=== PATIENT | male | born 2000 | race Caucasian/White ===

== ENCOUNTER 2025-04-24 15:26 | Emergency (ER) | payer BC, SELFPAY ==
--- NOTE | 2025-04-24 15:51 | ED_ITS ---
HPI - General Adult General Chief complaint: Skin/Abscess/Foreign Body Stated complaint: Rash all over Time Seen by Provider: 04/24/25 15:51 Source: patient Mode of arrival: ambulatory Limitations: no limitations History of Present Illness HPI narrative: 24-year-old male presented for complaint of a rash spreading over body surface. Onset last night. Rash is red and raised, mostly over joints. Patient complete d course of amoxicillin 2 days ago, taking for wisdom tooth extraction. Also reports wearing new pants that had not been washed. Endorses itching. Taking Benadryl. Denies lip, tongue, or throat swelling, shortness of breath or wheezing. Denies changes to soap, detergent, lotion, or any other exposures. No one else in the house or any contacts with similar symptoms. Related Data Allergies Allergy/AdvReac Type Severity Reaction Status Date / Time No Known Allergies Allergy Verified 04/24/25 15:51 Review of Systems Review of Systems: per HPI [facility] Family History Family History Mother Family history of thyroid disease Family history of lupus erythematosus Grandparent Diabetes mellitus Hypertension Family history of cardiovascular disease Family history of congestive heart failure Father Hypertension Social History Social History Smoking status: Never smoker Second hand tobacco smoke exposure: No Alcohol intake: never Comments At time of signature, I have reviewed and agree with nursing past medical, surgical, social and family history unless otherwise noted. Please see nursing chart for further information. There is no relevant family history pertinent to the presenting complaint Exam Narrative: GENERAL: Well-appearing HEAD: Normocephalic, atraumatic. EYES: conjunctivae clear, and EOMI. ENT: Mucous membranes moist. Oropharynx without edema, erythema or lesions. NECK: Supple. No lymphadenopathy CHEST: Clear to auscultation. HEART: Regular rate and rhythm. SKIN: Warm, dry. Urticaria noted to bilateral elbows, hands, knees, and along spine NEURO: Alert and oriented x3. Course Course Level of Care: Express Care Visit Vital Signs Vital signs: Vital Signs Temperature 98 F 04/24/25 15:57 Pulse Rate 107 H 04/24/25 15:57 Respiratory Rate 16 04/24/25 15:57 Blood Pressure 124/69 04/24/25 15:57 Pulse Oximetry 98 04/24/25 15:57 Temperature 98 F 04/24/25 15:57 Pulse Rate 107 H 04/24/25 15:57 Respiratory Rate 16 04/24/25 15:57 Blood Pressure 124/69 04/24/25 15:57 Pulse Oximetry 98 04/24/25 15:57 MDM MDM Narrative Medical decision making narrative: Discussed physical exam findings likely 2/2 amoxicillin. reviewed prescriptions. Advised supportive measures and signs/symptoms to go to the ER. Pt is appropriate for outpt treatment and f/u. Differential Diagnosis Differential Diagnosis: viral exanthema, contact dermatitis, allergic dermatitis, eczema, urticaria, insect bites, impetigo, tinea, folliculitis Discharge Plan Discharge Clinical Impression: Urticaria Patient Disposition: Home Condition: Stable Instructions: Antibiotic Form, Urticaria (ED) Additional Instructions: Take steroids and Pepcid as directed. Benadryl every 8 hours as needed Cool compresses to the sites of itching, avoid hot water. Avoid scratching to reduce the risk of infection Follow up with your primary care provider as needed in 1 week Go to the ER for worsening symptoms or concerns (lip, tongue, throat swelling/itching, trouble breathing etc) Patient Language: Gren[place] Prescriptions: New famotidine [Pepcid] 40 mg tablet 40 mg PO DAILY Qty: 10 0RF prednisone 20 mg tablet 20 mg PO DAILY Qty: 18 0RF Rx Instructions: take 3 tablets daily for 3 days, then 2 tablets daily for 3 days then 1 tablet daily for 3 days Follow-up/Referrals: PHYSICIAN,B2B ACCOUNT EXECUTIVE [Primary Care Provider, Internal Medicine]
[2025-04-24 15:57] VITALS: BP 124/69; PULSE 107; RESP 16; TEMP 36.6; O2SAT 98
== END 2025-04-24 16:12 | disposition home or self-care (01) ==
PROVIDERS: Emergency Provider Nurse Practitioner Family
DX: L50.9 Urticaria, unspecified (principal)
CPT/HCPCS: 99213; G0463